=== PATIENT | male | born 1980 | race African-American/Black ===

== ENCOUNTER 2016-12-11 09:48 | Emergency (ER) | payer OTHER ==
[~2016-12-11] VITALS: Ht 177.8 cm; Wt 107.0 kg
[2016-12-11 10:48] LABS: ADD MIUA? YES; BILIRUBIN NEGATIVE; BLOOD NEGATIVE; COLOR YELLOW ((YELLOW)); GLUCOSE (STRIP) NEGATIVE; KETONES NEGATIVE; LEUKOCYTES LARGE; NITRITE NEGATIVE; PROTEIN (STRIP) 30; SPECIFIC GRAVITY 1.024 (1.000-1.030)
[2016-12-11 11:08] LABS: BACTERIA RARE /HPF; EPITHELIAL CELLS RARE /HPF; MUCUS 3+ /LPF; RED BLOOD CELLS 0-5 /HPF (0-5); UCUL ADDED? YES; WHITE BLOOD CELLS TNTC /HPF (0-5)
[2016-12-11 12:10] VITALS: BP 146/99
== END 2016-12-11 12:11 | disposition home or self-care (01) ==
LOC: EME 09:48
PROVIDERS: Physician Assistant
DX: A64 Unspecified sexually transmitted disease (principal)
CPT/HCPCS: 81003; 87086; 87210; 99281; 99284; J0696

== ENCOUNTER 2017-01-06 20:19 | Emergency (ER) | payer OTHER ==
[~2017-01-06] VITALS: Ht 177.8 cm; Wt 106.8 kg
[2017-01-06 21:00] LABS: EOSINOPHIL (%) 2.7 % (0-5); EOSINOPHIL COUNT 0.2 K/uL (0-0.3); HEMATOCRIT 41.4 % (38.0-50.0); IMMATURE GRANULOCYTE (%) 0.2 % (0.0-0.7); INSTRUMENT ABS NEUTROPHIL CT 1.7 K/uL; MCH 28.4 PG (29.0-34.0); MCHC 33.1 G/DL (30.0-36.0); MCV 85.9 FL (86-99); MEAN PLAT.VOLUME 9.9 uM^3 (9.0-12.4); MONOCYTE (%) 7.7 % (3-12); MONOCYTE COUNT 0.5 K/uL (0-0.8); NEUTROPHIL (%) 26.4 % (45-76); NEUTROPHIL COUNT 1.7 K/uL (1.8-6.4); PLATELET COUNT 249 K/uL (156-360); RBC DIS.WIDTH-CV 13.2 % (11.8-14.6); RBC DIS.WIDTH-SD 41.3 % (39-53); RED BLOOD COUNT 4.82 M/uL (4.00-5.50); WHITE BLOOD COUNT 6.4 K/uL (4.1-10.2)
[2017-01-06 21:09] LABS: CHLORIDE 104 mEq/L (99-109); SODIUM 139 mEq/L (136-147)
[2017-01-06 21:11] LABS: GLUCOSE 97 mg/dL (70-99)
[2017-01-06 21:13] LABS: ANION GAP 7 MEQ/L (2-14)
[2017-01-06 21:15] LABS: GFR ESTIMATE (CALCULATED) > 59 mL/min/
[2017-01-06 21:16] LABS: UREA NITROGEN (BUN) 10 mg/dL (9-23)
[2017-01-06] MEDS ORDERED: NORCO 7.5/321 TABLET PO (23:12)
[2017-01-06] MEDS ORDERED: VALIUM5 MG PO (23:12)
[2017-01-06] MEDS ORDERED: MOTRIN800 MG PO (23:12)
[2017-01-07 00:21] VITALS: BP 150/107
== END 2017-01-07 | disposition home or self-care (01) ==
LOC: RME 20:19 → EME 20:19 → RME 01-07
PROVIDERS: Physician Assistant
DX: S16.1XXA Strain of muscle, fascia and tendon at neck level, initial encounter (principal); S83.401A Sprain of unspecified collateral ligament of right knee, initial encounter; M23.91 Unspecified internal derangement of right knee; S20.211A Contusion of right front wall of thorax, initial encounter; W10.9XXA Fall (on) (from) unspecified stairs and steps, initial encounter; M50.30 Other cervical disc degeneration, unspecified cervical region
CPT/HCPCS: 70491; 71101; 73564; 80048; 85025; 99281; 99284; J1885; J7030